=== PATIENT | female | born 1985 | race Caucasian/White ===

== ENCOUNTER → 2017-09-11 | Outpatient (REF) | payer OTHER | LOC: M SFHCLERA 13:02 | DX: R30.0 Dysuria (principal) ==

== ENCOUNTER → 2017-11-16 | Outpatient (CLI) | payer OTHER | LOC: M RAD 14:20 | DX: J32.0 Chronic maxillary sinusitis (principal); J34.2 Deviated nasal septum | CPT/HCPCS: 70486 ==

== ENCOUNTER → 2018-03-29 | Outpatient (REF) | payer OTHER | LOC: M SFHCLERA 17:46 | DX: J02.9 Acute pharyngitis, unspecified (principal) ==

== ENCOUNTER → 2018-04-04 | Outpatient (CLI) | payer OTHER | LOC: M LRY 18:18 | DX: M25.522 Pain in left elbow (principal) ==

== ENCOUNTER 2018-05-17 07:36 | Day surgery (SDC) | payer OTHER ==
[2018-05-17] MEDS ORDERED: LR 1,000 ML IV ×4 (07:45→10:15)
[2018-05-17] MEDS ORDERED: LIDOCAINE 2% INJ 100 MG/5 ML SDV (FOR ANES.) As Ordered ×2 (08:03)
[2018-05-17] MEDS ORDERED: ROCURONIUM BROMIDE 50 MG/5 ML VIAL As Ordered ×2 (08:03)
[2018-05-17] MEDS ORDERED: fentaNYL 100 MCG/2 ML INJECTION (J3010) As Ordered ×6 (08:03→09:00)
[2018-05-17] MEDS ORDERED: PROPOFOL 200 MG/20 ML VIAL As Ordered ×4 (08:03→08:09)
[2018-05-17] MEDS ORDERED: MIDAZOLAM INJ 2 MG/2 ML VIAL (J2250) As Ordered ×2 (08:03)
[2018-05-17] MEDS ORDERED: dexameTHASONE 4 MG/ML 1ML VIAL (J1100) As Ordered ×2 (08:04)
[2018-05-17 08:20] LABS: CONTROL LINE UCG INT CTR LINE PRESENT; URINE PREG TEST NEGATIVE (NEGATIVE)
[2018-05-17] MEDS ORDERED: ESMOLOL INJ 100MG/10ML VIAL As Ordered ×2 (09:03)
[2018-05-17] MEDS: EPINEPHrine 1MG/ML INJ 30ML MD-VIAL As Ordered ×2 (09:06)
[2018-05-17] MEDS: METHYLENE BLUE 0.5% (5MG/ML) 10 ML AMP (PROVAYBLUE)(Q9968 PER 1MG) As Ordered ×2 (09:06)
[2018-05-17] MEDS ORDERED: ONDANSETRON 4MG/2ML VIAL (J2405) As Ordered ×2 (09:17)
[2018-05-17] MEDS: LIDOCAINE W/EPINEPHRINE 1% 20ML VIAL As Ordered ×2 (09:30)
[2018-05-17] MEDS ORDERED: GLYCOPYRROLATE INJ 0.2 MG/ML 2 ML VIAL As Ordered ×4 (09:30)
[2018-05-17] MEDS ORDERED: NEOSTIGMINE 10 MG/10 ML VIAL (J2710) As Ordered ×2 (09:30)
[2018-05-17] MEDS ORDERED: fentaNYL 100 MCG/2 ML INJECTION (J3010) IV ×2 (10:15)
[2018-05-17] MEDS ORDERED: ONDANSETRON 4MG/2ML VIAL (J2405) IV ×2 (10:15)
[2018-05-17] MEDS ORDERED: ACETAMINOPH W/CODEINE #3 TAB UD PO ×2 (10:15)
[2018-05-17] MEDS ORDERED: METOCLOPRAMIDE INJ 10MG/2ML VIAL (J2765) IV ×2 (10:15)
[2018-05-17] MEDS ORDERED: PERCOCET 5MG/325MG TAB PO ×2 (10:15)
[2018-05-17] MEDS ORDERED: MEPERIDINE INJ 25 MG/ML VIAL (J2175) IV ×2 (10:15)
== END 2018-05-17 10:25 | disposition home or self-care (01) ==
LOC: M SDC 07:36
DX: J34.2 Deviated nasal septum (principal); J32.0 Chronic maxillary sinusitis; E66.9 Obesity, unspecified; Z68.35 Body mass index [BMI] 35.0-35.9, adult; Z88.1 Allergy status to other antibiotic agents; Z79.899 Other long term (current) drug therapy
CPT/HCPCS: 30520

== ENCOUNTER 2018-11-11 13:02 | Emergency (ER) | payer OTHER ==
[~2018-11-11] VITALS: Ht 172.7 cm; Wt 102.7 kg
[2018-11-11 13:02] VITALS: BP 141/89
[~2018-11-11 13:02] MED LIST changes: -NON-325T5 PO
[2018-11-11] MEDS ORDERED: NON-325T5 PO (13:47)
== END 2018-11-11 14:15 | disposition home or self-care (01) ==
LOC: M ED 13:02
DX: S52.124A Nondisplaced fracture of head of right radius, initial encounter for closed fracture (principal); W18.30XA Fall on same level, unspecified, initial encounter; Y92.009 Unspecified place in unspecified non-institutional (private) residence as the place of occurrence of the external cause; Y93.9 Activity, unspecified; M25.422 Effusion, left elbow; Z88.1 Allergy status to other antibiotic agents

== ENCOUNTER → 2018-11-11 | Outpatient (CLI) | payer OTHER ==
[~2018-11-11] MED LIST: ALL10TAB28 PO; APPLCAP PO; FISH1000 PO; HYDR-3713 PO; MULTTAB24 PO; NON-325T5 PO; TRIN1TAB2 PO; VITA100066 PO; ZOLO25TA PO; ZOLO50TA PO
--- NOTE | 2018-11-11 11:34 | REP ---
RIGHT ELBOW, FOUR VIEWS: HISTORY: Pain. There is a nondisplaced intraarticular fracture of the head of the radius. There is no dislocation. A joint effusion is present. IMPRESSION: Nondisplaced intraarticular fracture of the head of the radius. Electronically Signed by Oli Lowe MD 11/11/2018 11:37 A
== END ==
LOC: M WUC 10:58
PROVIDERS: ATTEND Physician Assistant
DX: S52.125A Nondisplaced fracture of head of left radius, initial encounter for closed fracture (principal); X58.XXXA Exposure to other specified factors, initial encounter; Y92.9 Unspecified place or not applicable